=== PATIENT | male | born 1950 | race Caucasian/White ===

== ENCOUNTER → 2018-03-24 | Outpatient (CLI) | payer OTHER ==
[2018-03-24 09:18] LABS: CREATININE 1.3 mg/dL (0.7-1.3)
== END ==
LOC: CAT 08:43
PROVIDERS: Internal Medicine Cardiovascular Disease
DX: I77.810 Thoracic aortic ectasia (principal); R91.8 Other nonspecific abnormal finding of lung field; I70.0 Atherosclerosis of aorta